=== PATIENT | female | born 2000 | race Hispanic/Latino ===

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

== ENCOUNTER 2020-03-25 08:15 | Emergency (ER) | payer OTHER ==
[~2020-03-25] VITALS: Ht 162.6 cm; Wt 77.1 kg
[2020-03-25 11:20] VITALS: BP 122/79
== END 2020-03-25 11:21 | disposition home or self-care (01) ==
LOC: ER 08:50
DX: S09.90XA Unspecified injury of head, initial encounter (principal); S19.80XA Other specified injuries of unspecified part of neck, initial encounter; Y04.0XXA Assault by unarmed brawl or fight, initial encounter; Y92.89 Other specified places as the place of occurrence of the external cause
CPT/HCPCS: 70450; 70490; 99283